=== PATIENT | female | born 1990 | race Two or more races ===

== ENCOUNTER → 2016-07-14 | Outpatient (CLI) | payer BC | END | disposition home or self-care (01) | LOC: LAB 09:40 | PROVIDERS: ATTEND Specialist | DX: Z30.49 Encounter for surveillance of other contraceptives (principal) ==

== ENCOUNTER 2016-12-26 07:40 | Emergency (ER) | payer BC, OTHER ==
[~2016-12-26] VITALS: Ht 160 cm; Wt 88.5 kg
[2016-12-26 08:21] VITALS: BP 147/71
[2016-12-26 09:33] LABS: Hepatitis B Surface Antibody Positive
== END 2016-12-26 09:08 | disposition home or self-care (01) ==
LOC: ER 07:48
DX: Z77.21 Contact with and (suspected) exposure to potentially hazardous body fluids (principal)
CPT/HCPCS: 36415; 86703; 86706; 86803; 87340

== ENCOUNTER → 2017-05-01 | Outpatient (CLI) | payer BC ==
[2017-05-02 04:06] LABS: RPR Non Reactive (Non Reactive)
== END | disposition home or self-care (01) ==
LOC: LAB 10:17
PROVIDERS: ATTEND Specialist
DX: Z20.828 Contact with and (suspected) exposure to other viral communicable diseases (principal); R53.83 Other fatigue; R53.1 Weakness
CPT/HCPCS: 36415; 86592; 86703; 86706